=== PATIENT | female | born 1945 | race Caucasian/White ===

== ENCOUNTER 2017-06-15 18:03 | Inpatient (IN) | payer MEDICARE, MEDICAID ==
[~2017-06-15] VITALS: Ht 167.6 cm; Wt 89.8 kg
[2017-06-15] MEDS ORDERED: HALOPERIDOL LACTATE 5 MG/1 ML VIAL IM ONE (18:30)
[2017-06-15] MEDS ORDERED: METF500T4 PO (18:36)
[2017-06-15] MEDS ORDERED: ATOR20TA PO (18:36)
[2017-06-15] MEDS ORDERED: QUET25TA PO (18:36)
[2017-06-15] MEDS ORDERED: PARO40TA PO (18:36)
[2017-06-15] MEDS ORDERED: ACET-2154 PO (18:36)
[2017-06-15] MEDS ORDERED: BLOO-140 IN (18:36)
[2017-06-15] MEDS ORDERED: ASPI-605 PO (18:36)
[2017-06-15] MEDS ORDERED: HYDR25CA PO (18:36)
[2017-06-15] MEDS ORDERED: LEVO100T PO (18:36)
[2017-06-15] MEDS ORDERED: DIVA250T4 PO (18:36)
[2017-06-15] MEDS ORDERED: HALOPERIDOL LACTATE 5 MG/1 ML VIAL ONE (18:45)
[2017-06-15] MEDS ORDERED: LORAZEPAM 2 MG/1 ML VIAL IM ONE (19:00)
[2017-06-15] MEDS ORDERED: LORAZEPAM 2 MG/1 ML VIAL ONE (19:06)
[2017-06-15 19:11] LABS: *BILIRUBIN,URIN NEGATIVE (NEGATIVE); *BLOOD, URINE 1+ (NEGATIVE); *CLARITY,URINE CLOUDY (CLEAR); *COLOR,URINE YELLOW (YELLOW); *KETONES,URINE NEGATIVE (NEGATIVE); *PROTEIN,URINE NEGATIVE (NEGATIVE); *UROBILINOGEN,URINE 0.2 E.U./dl (NORMAL); LEUKOCYTE ESTERASE ,URINE 1+ (NEGATIVE); NITRITE, URINE POSITIVE (NEGATIVE); PH,URINE 5.5 (5.0-8.0); UGLUCOSE NEGATIVE (NEGATIVE)
[2017-06-15] MEDS ORDERED: diphenhydrAMINE 50 MG/1 ML VIAL IM ONE (19:30)
[2017-06-15 19:34] LABS: BACTERIA,URINE MANY /HPF (NONE SEEN); MUCUS,URINE MODERATE /LPF (0-FEW); SQUAMOUS EPITHELIAL CELL,UR MODERATE /HPF (NONE SEEN); WBC,URINE 20-50 /HPF (0-3)
[2017-06-15] MEDS ORDERED: diphenhydrAMINE 50 MG/1 ML VIAL ONE (19:42)
[2017-06-15 19:48] LABS: *AMPHETAMINE, URINE NEGATIVE (NEGATIVE); *BARBITURATE, URINE NEGATIVE (NEGATIVE); *CANNABINOID, URINE NEGATIVE (NEGATIVE); *COCCAINE, URINE NEGATIVE (NEGATIVE); *OPIATE, URINE NEGATIVE (NEGATIVE); *PHENCYCLIDINE SCREEN,URINE NEGATIVE (NEGATIVE)
[2017-06-15 20:00] LABS: BASOPHILS % (AUTO) 0.5 % (0.0-2.0); EOSINOPHILS # (AUTO) 0.1 K/uL (0.0-0.7); EOSINOPHILS % (AUTO) 0.7 % (0.0-7.0); HEMATOCRIT 35.4 % (37-47); HEMOGLOBIN 12.1 G/DL (12.0-16.0); LYMPHOCYTES # (AUTO) 3.2 K/UL (0.8-4.8); LYMPHOCYTES % (AUTO) 34.6 % (20.5-51.5); MEAN CORPUSCULAR HGB CONC 34 g/dL (32.0-37.0); MONOCYTES # (AUTO) 0.9 K/UL (0.1-1.30); MONOCYTES % (AUTO) 9.5 % (0.0-11.0); NEUTROPHILS # (AUTO) 5.1 K/UL (1.8-8.9); NEUTROPHILS % (AUTO) 54.7 % (38.5-71.5); PLATELET COUNT (AUTO) 313 K/UL (150-450); RED BLOOD CELL COUNT(AUTO) 3.89 MIL/UL (4.2-5.4); WHITE BLOOD COUNT (AUTO) 9.3 K/UL (4.0-11.2)
[2017-06-15] MEDS ORDERED: CEFTRIAXONE 1 G VIAL IM ONE (20:00)
[2017-06-15 20:10] LABS: CARBON DIOXIDE 28 mmol/L (21-32); CHLORIDE 104 mmol/L (98-107); GLUCOSE 162 mg/dL (74-106); POTASSIUM 4.4 mmol/L (3.5-5.1); UREA NITROGEN, BLOOD 33 mg/dL (7-18)
[2017-06-15 20:16] LABS: ETHANOL < 3 MG/DL (0-0)
[2017-06-15 20:17] LABS: ALANINE AMINOTRANSFERASE 14 U/L (14-59); ALKALINE PHOSPHATASE 79 U/L (50-136); ASPARTATE AMINOTRANSFERASE < 5 U/L (15-37); BILIRUBIN,DIRECT < 0.1 mg/dL (0.0-0.2); BILIRUBIN,TOTAL 0.2 mg/dL (0.2-1.0); TOTAL PROTEIN, SERUM 6.8 g/dL (6.4-8.2)
[2017-06-15 20:19] LABS: ACETAMINOPHEN < 2.0 ug/mL (10-30)
[2017-06-15] MEDS ORDERED: CEFTRIAXONE 1 G VIAL ONE (20:27)
[2017-06-15] MEDS ORDERED: LIDOCAINE HCL 1% 20 ML VIAL ONE (20:28)
[2017-06-15 20:40] LABS: THYROID STIMULATING HORMONE 0.978 mIU/mL (0.358-3.740)
[2017-06-15] MEDS ORDERED: MAGNESIUM HYDROXIDE 30 ML LIQUID UDC PO PRN (21:30)
[2017-06-15] MEDS ORDERED: LORAZEPAM 0.5 MG TABLET PO PRN (21:30)
[2017-06-15] MEDS ORDERED: MAG HYDROX/AL HYDROX/SIMETH 30 ML LIQUID UDC PO PRN (21:30)
[2017-06-15 21:35] VITALS: BP 109/60
[2017-06-16 07:30] VITALS: BP 133/50
[2017-06-16] MEDS: VENLAFAXINE XR 75 MG CAP.SR.24H PO SCH (09:16)
[2017-06-16] MEDS: DIVALPROEX SPRINKLE 125 MG CAP.SPRINK PO SCH ×4 (09:16→20:11)
[2017-06-16 15:03] VITALS: BP 100/50
[2017-06-16] MEDS: METFORMIN HCL 500 MG TABLET PO SCH (17:21)
[2017-06-16] MEDS: SULFAMETH/TRIMETH 800/160 MG TABLET PO SCH (17:21)
[2017-06-16] MEDS: ATORVASTATIN 20 MG TABLET PO SCH (20:12)
[2017-06-16] MEDS: QUETIAPINE FUMARATE 100 MG TABLET PO SCH (20:12)
[2017-06-17] MEDS: LEVOTHYROXINE SODIUM 100 MCG TABLET PO SCH (06:34)
[2017-06-17 07:30] VITALS: BP 101/60
[2017-06-17] MEDS: METFORMIN HCL 500 MG TABLET PO SCH ×2 (09:12→17:20)
[2017-06-17] MEDS: SULFAMETH/TRIMETH 800/160 MG TABLET PO SCH ×2 (09:12→17:20)
[2017-06-17] MEDS: DIVALPROEX SPRINKLE 125 MG CAP.SPRINK PO SCH ×4 (09:12→20:16)
[2017-06-17] MEDS: VENLAFAXINE XR 75 MG CAP.SR.24H PO SCH (09:12)
[2017-06-17] MEDS: ASPIRIN EC 81 MG TABLET.DR PO SCH (09:13)
[2017-06-17 15:00] VITALS: BP 122/56
[2017-06-17] MEDS: ACETAMINOPHEN 325 MG TABLET PO PRN (15:32)
[2017-06-17] MEDS: BLOOD SUGAR DIAGNOSTIC 1 EACH STRIP VI SCH (16:36)
[2017-06-17 20:03] VITALS: BP 132/52
[2017-06-17] MEDS: ATORVASTATIN 20 MG TABLET PO SCH (20:16)
[2017-06-17] MEDS: QUETIAPINE FUMARATE 100 MG TABLET PO SCH (20:17)
[2017-06-17] MEDS: HYDROXYZINE PAMOATE 25 MG CAPSULE PO PRN (21:19)
[2017-06-17] MEDS: ZOLPIDEM 5 MG TABLET PO PRN (23:24)
[2017-06-18] MEDS: LEVOTHYROXINE SODIUM 100 MCG TABLET PO SCH (06:38)
[2017-06-18] MEDS: BLOOD SUGAR DIAGNOSTIC 1 EACH STRIP VI SCH ×2 (06:42→16:59)
[2017-06-18 07:30] VITALS: BP 93/50
[2017-06-18 08:15] LABS: BASOPHILS % (AUTO) 0.3 % (0.0-2.0); EOSINOPHILS # (AUTO) 0.3 K/uL (0.0-0.7); EOSINOPHILS % (AUTO) 3.9 % (0.0-7.0); HEMATOCRIT 32.9 % (37-47); HEMOGLOBIN 11.2 G/DL (12.0-16.0); LYMPHOCYTES # (AUTO) 2.8 K/UL (0.8-4.8); LYMPHOCYTES % (AUTO) 43.8 % (20.5-51.5); MEAN CORPUSCULAR HEMOGLOBIN 31.5 UUG (27.0-31.0); MEAN CORPUSCULAR HGB CONC 34 g/dL (32.0-37.0); MEAN CORPUSCULAR VOLUME 92.2 FL (81.0-99.0); MONOCYTES # (AUTO) 0.6 K/UL (0.1-1.30); MONOCYTES % (AUTO) 8.7 % (0.0-11.0); NEUTROPHILS # (AUTO) 2.8 K/UL (1.8-8.9); NEUTROPHILS % (AUTO) 43.3 % (38.5-71.5); PLATELET COUNT (AUTO) 291 K/UL (150-450); RED BLOOD CELL COUNT(AUTO) 3.57 MIL/UL (4.2-5.4); WHITE BLOOD COUNT (AUTO) 6.5 K/UL (4.0-11.2)
[2017-06-18 08:22] LABS: BILIRUBIN,TOTAL 0.3 mg/dL (0.2-1.0); CREATININE 0.9 mg/dL (0.6-1.3); PHOSPHOROUS 4.7 mg/dL (2.5-4.9); POTASSIUM 4.2 mmol/L (3.5-5.1); TOTAL PROTEIN, SERUM 6.3 g/dL (6.4-8.2)
[2017-06-18] MEDS: DIVALPROEX SPRINKLE 125 MG CAP.SPRINK PO SCH ×4 (08:38→20:37)
[2017-06-18] MEDS: METFORMIN HCL 500 MG TABLET PO SCH ×2 (08:38→17:03)
[2017-06-18] MEDS: SULFAMETH/TRIMETH 800/160 MG TABLET PO SCH ×2 (08:38→17:03)
[2017-06-18] MEDS: VENLAFAXINE XR 75 MG CAP.SR.24H PO SCH (08:38)
[2017-06-18] MEDS: ASPIRIN EC 81 MG TABLET.DR PO SCH (08:38)
[2017-06-18] MEDS: ACETAMINOPHEN 325 MG TABLET PO PRN (12:50)
[2017-06-18] MEDS: HYDROXYZINE PAMOATE 25 MG CAPSULE PO PRN (14:29)
[2017-06-18 15:00] VITALS: BP 106/50
[2017-06-18] MEDS: QUETIAPINE FUMARATE 25 MG TABLET PO SCH (17:03)
[2017-06-18 20:01] VITALS: BP 104/57
[2017-06-18] MEDS: QUETIAPINE FUMARATE 100 MG TABLET PO SCH (20:37)
[2017-06-18] MEDS: ATORVASTATIN 20 MG TABLET PO SCH (20:37)
[2017-06-18] MEDS: ZOLPIDEM 5 MG TABLET PO PRN (22:51)
[2017-06-19 07:30] VITALS: BP 119/61
[2017-06-19] MEDS: LEVOTHYROXINE SODIUM 100 MCG TABLET PO SCH (07:50)
[2017-06-19] MEDS: BLOOD SUGAR DIAGNOSTIC 1 EACH STRIP VI SCH ×2 (07:50→16:31)
[2017-06-19] MEDS: METFORMIN HCL 500 MG TABLET PO SCH ×2 (08:38→17:02)
[2017-06-19] MEDS: ASPIRIN EC 81 MG TABLET.DR PO SCH (08:38)
[2017-06-19] MEDS: SULFAMETH/TRIMETH 800/160 MG TABLET PO SCH ×2 (08:38→16:49)
[2017-06-19] MEDS: VENLAFAXINE XR 75 MG CAP.SR.24H PO SCH (08:38)
[2017-06-19] MEDS: DIVALPROEX SPRINKLE 125 MG CAP.SPRINK PO SCH ×4 (08:39→20:27)
[2017-06-19] MEDS: QUETIAPINE FUMARATE 25 MG TABLET PO SCH ×2 (08:39→16:49)
[2017-06-19] MEDS: HYDROXYZINE PAMOATE 25 MG CAPSULE PO PRN (13:33)
[2017-06-19 15:11] VITALS: BP 91/42
[2017-06-19 20:07] VITALS: BP 101/54
[2017-06-19] MEDS: QUETIAPINE FUMARATE 100 MG TABLET PO SCH (20:27)
[2017-06-19] MEDS: ATORVASTATIN 20 MG TABLET PO SCH (20:27)
[2017-06-19 20:37] VITALS: BP 118/59
[2017-06-20] MEDS: LEVOTHYROXINE SODIUM 100 MCG TABLET PO SCH (06:32)
[2017-06-20] MEDS: BLOOD SUGAR DIAGNOSTIC 1 EACH STRIP VI SCH ×2 (06:36→16:30)
[2017-06-20 07:30] VITALS: BP 98/53
[2017-06-20] MEDS: ASPIRIN EC 81 MG TABLET.DR PO SCH (08:50)
[2017-06-20] MEDS: SULFAMETH/TRIMETH 800/160 MG TABLET PO SCH ×2 (08:50→17:07)
[2017-06-20] MEDS: METFORMIN HCL 500 MG TABLET PO SCH ×2 (08:51→17:07)
[2017-06-20] MEDS: VENLAFAXINE XR 75 MG CAP.SR.24H PO SCH (08:51)
[2017-06-20] MEDS: QUETIAPINE FUMARATE 25 MG TABLET PO SCH ×2 (08:51→17:07)
[2017-06-20] MEDS: DIVALPROEX SPRINKLE 125 MG CAP.SPRINK PO SCH ×4 (08:51→20:31)
[2017-06-20] MEDS: HYDROXYZINE PAMOATE 25 MG CAPSULE PO PRN ×2 (14:02→23:54)
[2017-06-20 17:06] VITALS: BP 106/60
[2017-06-20 20:22] VITALS: BP 103/64
[2017-06-20] MEDS: ATORVASTATIN 20 MG TABLET PO SCH (20:31)
[2017-06-20] MEDS: QUETIAPINE FUMARATE 100 MG TABLET PO SCH (20:31)
[2017-06-21] MEDS: LEVOTHYROXINE SODIUM 100 MCG TABLET PO SCH (06:14)
[2017-06-21] MEDS: BLOOD SUGAR DIAGNOSTIC 1 EACH STRIP VI SCH ×2 (06:35→16:30)
[2017-06-21 07:30] VITALS: BP 96/50
[2017-06-21] MEDS: QUETIAPINE FUMARATE 25 MG TABLET PO SCH ×2 (08:42→17:02)
[2017-06-21] MEDS: METFORMIN HCL 500 MG TABLET PO SCH ×2 (08:43→17:02)
[2017-06-21] MEDS: VENLAFAXINE XR 75 MG CAP.SR.24H PO SCH (08:43)
[2017-06-21] MEDS: ASPIRIN EC 81 MG TABLET.DR PO SCH (08:43)
[2017-06-21] MEDS: DIVALPROEX SPRINKLE 125 MG CAP.SPRINK PO SCH ×5 (08:43→22:15)
[2017-06-21] MEDS: SULFAMETH/TRIMETH 800/160 MG TABLET PO SCH ×2 (08:43→17:02)
[2017-06-21] MEDS: HYDROXYZINE PAMOATE 25 MG CAPSULE PO PRN (13:21)
[2017-06-21 15:32] VITALS: BP 103/51
[2017-06-21 19:47] VITALS: BP 105/60
[2017-06-21] MEDS: QUETIAPINE FUMARATE 100 MG TABLET PO SCH ×2 (21:00→22:15)
[2017-06-21] MEDS: ATORVASTATIN 20 MG TABLET PO SCH (21:18)
[2017-06-21 22:16] VITALS: BP 117/55
[2017-06-22] MEDS: HYDROXYZINE PAMOATE 25 MG CAPSULE PO PRN (00:18)
[2017-06-22] MEDS: LEVOTHYROXINE SODIUM 100 MCG TABLET PO SCH (06:33)
[2017-06-22] MEDS: BLOOD SUGAR DIAGNOSTIC 1 EACH STRIP VI SCH (06:33)
[2017-06-22 07:30] VITALS: BP 105/56
[2017-06-22] MEDS: DIVALPROEX SPRINKLE 125 MG CAP.SPRINK PO SCH ×2 (08:29→13:16)
[2017-06-22] MEDS: VENLAFAXINE XR 75 MG CAP.SR.24H PO SCH (08:30)
[2017-06-22] MEDS: ASPIRIN EC 81 MG TABLET.DR PO SCH (08:30)
[2017-06-22] MEDS: METFORMIN HCL 500 MG TABLET PO SCH (08:30)
[2017-06-22] MEDS: QUETIAPINE FUMARATE 25 MG TABLET PO SCH (08:30)
[2017-06-22] MEDS: SULFAMETH/TRIMETH 800/160 MG TABLET PO SCH (08:30)
== END 2017-06-22 13:30 | DRG 885 ==
LOC: ER 18:06 → GPS 20:52
PROVIDERS: ADMIT Psychiatry & Neurology Psychiatry; ATTEND Internal Medicine
DX: F31.5 Bipolar disorder, current episode depressed, severe, with psychotic features (principal); E44.0 Moderate protein-calorie malnutrition; R45.851 Suicidal ideations; E11.9 Type 2 diabetes mellitus without complications; E03.9 Hypothyroidism, unspecified; E66.9 Obesity, unspecified; D64.9 Anemia, unspecified; N39.0 Urinary tract infection, site not specified; E78.5 Hyperlipidemia, unspecified; Z79.899 Other long term (current) drug therapy; Z87.440 Personal history of urinary (tract) infections; I10 Essential (primary) hypertension; Z68.32 Body mass index [BMI] 32.0-32.9, adult; Z79.84 Long term (current) use of oral hypoglycemic drugs
CPT/HCPCS: 36415; 80164; 80307; 83735; 84100; 84443; 85025; A4663; G0480; G0480-TC; J0696; J1200; J1630; J2060; J3490